=== PATIENT | male | born 1970 | race Two or more races ===

== ENCOUNTER 2016-08-29 10:50 | Emergency (ER) | payer BC, SELFPAY ==
[~2016-08-29] VITALS: Ht 160 cm; Wt 63.0 kg
== END 2016-08-29 12:10 | disposition short-term general hospital (02) ==
LOC: ER 10:50
DX: R07.9 Chest pain, unspecified (principal); R79.89 Other specified abnormal findings of blood chemistry; Z79.899 Other long term (current) drug therapy
CPT/HCPCS: J1644

== ENCOUNTER → 2016-09-12 | Outpatient (CLI) | payer BC | END | disposition short-term general hospital (02) | LOC: CLCARD 11:47 | DX: I25.10 Atherosclerotic heart disease of native coronary artery without angina pectoris (principal); I25.5 Ischemic cardiomyopathy; E78.5 Hyperlipidemia, unspecified; Z87.891 Personal history of nicotine dependence; Z79.899 Other long term (current) drug therapy ==

== ENCOUNTER → 2016-11-14 | Outpatient (CLI) | payer BC | END | disposition short-term general hospital (02) | LOC: CLCARD 07:50 | DX: I25.5 Ischemic cardiomyopathy (principal); I25.10 Atherosclerotic heart disease of native coronary artery without angina pectoris; E78.5 Hyperlipidemia, unspecified; I25.2 Old myocardial infarction; Z79.899 Other long term (current) drug therapy; Z95.1 Presence of aortocoronary bypass graft; Z87.891 Personal history of nicotine dependence ==